=== PATIENT | female | born 1955 | race Caucasian/White ===

== ENCOUNTER 2020-08-23 22:06 | Emergency (ER) | payer MEDICARE, BC ==
[~2020-08-23] VITALS: Ht 165.1 cm; Wt 51.0 kg
[2020-08-23 22:23] VITALS: BP 139/77
== END 2020-08-23 23:48 | disposition home or self-care (01) ==
LOC: ER 22:06
DX: S01.01XA Laceration without foreign body of scalp, initial encounter (principal); F10.129 Alcohol abuse with intoxication, unspecified; Y90.9 Presence of alcohol in blood, level not specified; W18.39XA Other fall on same level, initial encounter; Y93.89 Activity, other specified; Y92.89 Other specified places as the place of occurrence of the external cause; Y99.8 Other external cause status
CPT/HCPCS: 12002; 70450; 72125; 99285-25